=== PATIENT | male | born 1945 | race Caucasian/White ===

== ENCOUNTER 2019-07-04 15:20 | Inpatient (IN) ==
[2019-07-04 16:26] LABS: Basophils # 0.1 10*3/uL (0.0-0.2); Basophils % 0.7 % (0.0-0.8); Eosinophils # 0.2 10*3/uL (0.0-0.87); Eosinophils % 2.1 % (0.00-10.9); Hematocrit 40.1 VOL% (42.0-52.0); Hemoglobin 12.1 GM/DL (14.0-18.0); Immature Granulocytes % 0.3 %; Immature Granulocytes Absolute 0.02 #; Lymphocytes # 0.9 10*3/uL (1.4-4.0); Lymphocytes % 13.2 % (21.2-54.2); Mean Corpuscular HGB Conc 30.2 GM/DL (32-36); Mean Platelet Volume 11.6 FL (9.6-12.0); Monocytes % 10.1 % (1.7-12.7); Neutrophils % 73.6 % (38.7-73.9); Platelet Count 213 T/CUMM (130-400); Red Blood Count 4.36 MC/CUMM (3.8-5.5); Red Cell Distribution Width 15.1 % (9.3-17.3); White Blood Count 7.1 T/CUMM (4-12)
[2019-07-04 16:53] LABS: Albumin 2.5 G/DL (3.4-5.0); Bilirubin,Total 0.6 MG/DL (0.2-1.0); Total Protein 5.6 G/DL (6.4-8.3)
[2019-07-04 17:35] LABS: PT Patient Result 10.7 SECS (9.6-12.2)
[2019-07-04] MEDS ORDERED: FUROSEMIDE 40 MG/4 ML VIAL ONE (19:16)
[2019-07-04] MEDS ORDERED: FUROSEMIDE 40 MG/4 ML VIAL IV STA (19:18)
[2019-07-04] MEDS ORDERED: ONDANSETRON 4 MG/2 ML VIAL IV PRN (19:24)
[2019-07-04] MEDS ORDERED: ACETAMINOPHEN 325 MG TABLET PO PRN (19:24)
[2019-07-04] MEDS ORDERED: MAGNESIUM SULF RIDER 2 GM in PREMIX 1 EACH IV PRN (19:24)
[2019-07-04] MEDS ORDERED: MAGNESIUM SULF RIDER 4 GM in PREMIX 1 EACH IV PRN (19:24)
[2019-07-04] MEDS ORDERED: TETANUS IMMUNE GLOBULIN 250 UNIT SYRINGE IM ONE (19:38)
[2019-07-04] MEDS: carvediloL 3.125 MG TABLET PO SCH (22:05)
[2019-07-04] MEDS: ENOXAPARIN 40 MG/0.4 ML SYRINGE SUBCUT SCH (22:05)
[2019-07-04] MEDS ORDERED: hydrALAZINE 20 MG/1 ML VIAL IV PRN (23:45)
[2019-07-05] MEDS: ALBUTEROL/IPRATROPIUM 3 ML NEB RESP TX SCH ×4 (00:40→19:43)
[2019-07-05 06:25] LABS: Basophils # 0.1 10*3/uL (0.0-0.2); Basophils % 0.7 % (0.0-0.8); Eosinophils % 0.5 % (0.00-10.9); Hematocrit 42.7 VOL% (42.0-52.0); Hemoglobin 12.9 GM/DL (14.0-18.0); Immature Granulocytes % 0.4 %; Immature Granulocytes Absolute 0.03 #; Lymphocytes # 0.8 10*3/uL (1.4-4.0); Lymphocytes % 10.2 % (21.2-54.2); Mean Corpuscular HGB Conc 30.2 GM/DL (32-36); Mean Corpuscular Volume 92.8 FL (87-102); Mean Platelet Volume 12.9 FL (9.6-12.0); Monocytes % 10.7 % (1.7-12.7); Neutrophils % 77.5 % (38.7-73.9); Platelet Count 208 T/CUMM (130-400); Red Cell Distribution Width 15.5 % (9.3-17.3); White Blood Count 7.3 T/CUMM (4-12)
[2019-07-05 06:34] LABS: Calcium 8.3 MG/DL (8.5-10.1); Osmolality,Calculated 287.6 MOS/KG (273-304); Thyroid Stimulating Hormone 2.03 uIU/ml (0.358-3.74); VLDL CHOLESTEROL 14.2 MG/DL
[2019-07-05] MEDS ORDERED: FUROSEMIDE 20 MG/2 ML VIAL IV SCH (08:00)
[2019-07-05] MEDS: NICOTINE 21 MG/24 HR PATCH TRANSDERM SCH (09:42)
[2019-07-05] MEDS: LISINOPRIL 2.5 MG TABLET PO SCH (09:43)
[2019-07-05] MEDS: PANTOPRAZOLE 40 MG TABLET PO SCH (09:43)
[2019-07-05] MEDS: carvediloL 3.125 MG TABLET PO SCH ×2 (09:44→16:52)
[2019-07-05] MEDS: ASPIRIN CHEW 81 MG TABLET PO SCH (09:44)
[2019-07-05] MEDS ORDERED: DIPHTHERIA/TETANUS ADULT VACCINE 0.5 ML SYRINGE IM ONE (11:00)
[2019-07-05 16:13] LABS: Apearance,Urine CLEAR (Clear); Bilirubin,Urine Negative (Negative); Blood, Urine Small mg/dL (Negative); Glucose,Urine (UA) Negative (Negative); Ketones,Urine Negative (Negative); Mucus,Urine Occasional /LPF (Occasional); Nitrite,Urine Positive (Negative); Protein,Urine Negative; RBC,Urine 5 /HPF (0-4); Squamous Epithelial Cell,Urine Occasional /HPF (0-10); Urine Color Yellow (Yellow); Urine Specific Gravity 1.021 (1.001-1.035); Urine Urobilinogen < 2.0 EU/DL (0.2-1.0); WBC,Urine 47 /HPF (0-6)
[2019-07-05] MEDS: FUROSEMIDE 40 MG/4 ML VIAL IV SCH (16:51)
[2019-07-05] MEDS: ENOXAPARIN 40 MG/0.4 ML SYRINGE SUBCUT SCH (21:22)
[2019-07-06] MEDS: ALBUTEROL/IPRATROPIUM 3 ML NEB RESP TX SCH ×4 (00:15→19:28)
[2019-07-06 06:35] LABS: Basophils % 0.4 % (0.0-0.8); Eosinophils # 0.1 10*3/uL (0.0-0.87); Eosinophils % 1.6 % (0.00-10.9); Hematocrit 36.2 VOL% (42.0-52.0); Hemoglobin 10.9 GM/DL (14.0-18.0); Immature Granulocytes % 0.4 %; Immature Granulocytes Absolute 0.02 #; Lymphocytes # 0.7 10*3/uL (1.4-4.0); Lymphocytes % 12.1 % (21.2-54.2); Mean Corpuscular HGB Conc 30.1 GM/DL (32-36); Mean Corpuscular Volume 90.7 FL (87-102); Mean Platelet Volume 11.4 FL (9.6-12.0); Monocytes % 9.1 % (1.7-12.7); Neutrophils % 76.4 % (38.7-73.9); Platelet Count 198 T/CUMM (130-400); Red Blood Count 3.99 MC/CUMM (3.8-5.5); Red Cell Distribution Width 15.4 % (9.3-17.3); White Blood Count 5.5 T/CUMM (4-12)
[2019-07-06 06:53] LABS: Calcium 7.7 MG/DL (8.5-10.1)
[2019-07-06] MEDS ORDERED: SPIRONOLACTONE 25 MG TABLET PO SCH (09:00)
[2019-07-06] MEDS: FUROSEMIDE 40 MG/4 ML VIAL IV SCH (09:01)
[2019-07-06] MEDS: carvediloL 3.125 MG TABLET PO SCH ×2 (09:01→16:07)
[2019-07-06] MEDS: NICOTINE 21 MG/24 HR PATCH TRANSDERM SCH (09:01)
[2019-07-06] MEDS: ASPIRIN CHEW 81 MG TABLET PO SCH (09:02)
[2019-07-06] MEDS: PANTOPRAZOLE 40 MG TABLET PO SCH (09:02)
[2019-07-06] MEDS: MULTIVITAMIN (CENTRUM) TABLET PO SCH (09:02)
[2019-07-06] MEDS: LISINOPRIL 2.5 MG TABLET PO SCH (09:02)
[2019-07-06] MEDS: cefTRIAXone 1,000 MG in SYRINGE 1 EACH IV SCH (11:30)
[2019-07-06] MEDS ORDERED: SKIN HEALING OINT (AQUAPHOR) 50 GM TUBE TOP PRN (12:00)
[2019-07-06] MEDS: BACITRACIN OINT 0.9 GM PACK TOP SCH (14:53)
[2019-07-06] MEDS: ENOXAPARIN 40 MG/0.4 ML SYRINGE SUBCUT SCH (21:54)
[2019-07-07] MEDS: ALBUTEROL/IPRATROPIUM 3 ML NEB RESP TX SCH ×4 (02:04→20:08)
[2019-07-07 04:17] LABS: Basophils % 0.4 % (0.0-0.8); Eosinophils # 0.1 10*3/uL (0.0-0.87); Eosinophils % 1.7 % (0.00-10.9); Hematocrit 35.6 VOL% (42.0-52.0); Hemoglobin 10.8 GM/DL (14.0-18.0); Immature Granulocytes % 0.6 %; Immature Granulocytes Absolute 0.03 #; Lymphocytes # 0.9 10*3/uL (1.4-4.0); Mean Corpuscular HGB Conc 30.3 GM/DL (32-36); Mean Corpuscular Volume 90.1 FL (87-102); Mean Platelet Volume 12.1 FL (9.6-12.0); Monocytes % 10.8 % (1.7-12.7); Neutrophils % 67.5 % (38.7-73.9); Platelet Count 182 T/CUMM (130-400); Red Blood Count 3.95 MC/CUMM (3.8-5.5); Red Cell Distribution Width 15.2 % (9.3-17.3); White Blood Count 4.8 T/CUMM (4-12)
[2019-07-07 04:54] LABS: Calcium 7.9 MG/DL (8.5-10.1); Osmolality,Calculated 286.8 MOS/KG (273-304)
[2019-07-07] MEDS ORDERED: POTASSIUM CHLORIDE 20 MEQ TABLET PO ONE (06:12)
[2019-07-07] MEDS: POTASSIUM CHLORIDE RIDER 10 MEQ in PREMIX 1 EACH IV SCH ×2 (07:41→10:00)
[2019-07-07] MEDS ORDERED: LIDOCAINE 1% 20 ML VIAL ONE ×2 (09:36→11:59)
[2019-07-07] MEDS ORDERED: HEPARIN/NACL 0.9% 2 UNITS/ML 0 ML IV ONE (09:36)
[2019-07-07] MEDS: PANTOPRAZOLE 40 MG TABLET PO SCH (10:01)
[2019-07-07] MEDS: LISINOPRIL 2.5 MG TABLET PO SCH (10:01)
[2019-07-07] MEDS: carvediloL 3.125 MG TABLET PO SCH ×2 (10:01→20:01)
[2019-07-07] MEDS: ASPIRIN CHEW 81 MG TABLET PO SCH (10:01)
[2019-07-07] MEDS: MULTIVITAMIN (CENTRUM) TABLET PO SCH (10:53)
[2019-07-07] MEDS ORDERED: HEPARIN/NACL 0.9% 2 UNITS/ML 500 ML IV ONE ×2 (11:59→12:00)
[2019-07-07] MEDS ORDERED: fentaNYL 100 MCG/2 ML VIAL ONE (12:59)
[2019-07-07] MEDS ORDERED: PROPOFOL 200 MG/20 ML VIAL IV ONE (12:59)
[2019-07-07] MEDS ORDERED: LIDOCAINE 2% 5 ML VIAL ONE (12:59)
[2019-07-07] MEDS ORDERED: MIDAZOLAM 2 MG/2 ML VIAL ONE (12:59)
[2019-07-07] MEDS ORDERED: SODIUM CHLORIDE 0.9% 1,000 ML IV SCH (13:00)
[2019-07-07] MEDS ORDERED: ONDANSETRON 4 MG/2 ML VIAL ONE (13:00)
[2019-07-07] MEDS: cefTRIAXone 1,000 MG in SYRINGE 1 EACH IV SCH (16:56)
[2019-07-07] MEDS: BACITRACIN OINT 0.9 GM PACK TOP SCH (16:56)
[2019-07-07] MEDS: NICOTINE 21 MG/24 HR PATCH TRANSDERM SCH (16:57)
[2019-07-08] MEDS: ALBUTEROL/IPRATROPIUM 3 ML NEB RESP TX SCH ×4 (01:21→19:36)
[2019-07-08 03:16] LABS: Basophils % 0.9 % (0.0-0.8); Eosinophils # 0.1 10*3/uL (0.0-0.87); Eosinophils % 1.5 % (0.00-10.9); Hematocrit 35.7 VOL% (42.0-52.0); Hemoglobin 10.6 GM/DL (14.0-18.0); Immature Granulocytes % 0.2 %; Immature Granulocytes Absolute 0.01 #; Lymphocytes # 0.9 10*3/uL (1.4-4.0); Lymphocytes % 19.1 % (21.2-54.2); Mean Corpuscular HGB Conc 29.7 GM/DL (32-36); Mean Corpuscular Volume 92.7 FL (87-102); Mean Platelet Volume 12.2 FL (9.6-12.0); Monocytes % 11.7 % (1.7-12.7); Neutrophils % 66.6 % (38.7-73.9); Platelet Count 188 T/CUMM (130-400); Red Blood Count 3.85 MC/CUMM (3.8-5.5); Red Cell Distribution Width 15.3 % (9.3-17.3); White Blood Count 4.6 T/CUMM (4-12)
[2019-07-08 03:44] LABS: Calcium 7.8 MG/DL (8.5-10.1); Osmolality,Calculated 283.1 MOS/KG (273-304)
[2019-07-08] MEDS: BACITRACIN OINT 0.9 GM PACK TOP SCH (08:50)
[2019-07-08] MEDS: NICOTINE 21 MG/24 HR PATCH TRANSDERM SCH (08:50)
[2019-07-08] MEDS: LISINOPRIL 2.5 MG TABLET PO SCH (08:52)
[2019-07-08] MEDS: carvediloL 3.125 MG TABLET PO SCH ×2 (08:52→16:37)
[2019-07-08] MEDS: MULTIVITAMIN (CENTRUM) TABLET PO SCH (08:52)
[2019-07-08] MEDS: PANTOPRAZOLE 40 MG TABLET PO SCH (08:52)
[2019-07-08] MEDS: ASPIRIN CHEW 81 MG TABLET PO SCH (08:52)
[2019-07-08] MEDS: cefTRIAXone 1,000 MG in SYRINGE 1 EACH IV SCH (10:53)
[2019-07-09] MEDS: ALBUTEROL/IPRATROPIUM 3 ML NEB RESP TX SCH ×4 (01:43→18:57)
[2019-07-09 04:29] LABS: Basophils % 0.8 % (0.0-0.8); Eosinophils # 0.1 10*3/uL (0.0-0.87); Eosinophils % 1.7 % (0.00-10.9); Hematocrit 36.1 VOL% (42.0-52.0); Hemoglobin 10.7 GM/DL (14.0-18.0); Immature Granulocytes % 0.4 %; Immature Granulocytes Absolute 0.02 #; Lymphocytes # 0.9 10*3/uL (1.4-4.0); Lymphocytes % 17.1 % (21.2-54.2); Mean Corpuscular HGB Conc 29.6 GM/DL (32-36); Mean Corpuscular Volume 92.8 FL (87-102); Mean Platelet Volume 11.7 FL (9.6-12.0); Monocytes % 8.7 % (1.7-12.7); Neutrophils % 71.3 % (38.7-73.9); Platelet Count 170 T/CUMM (130-400); Red Blood Count 3.89 MC/CUMM (3.8-5.5); Red Cell Distribution Width 15.2 % (9.3-17.3); White Blood Count 5.2 T/CUMM (4-12)
[2019-07-09 05:09] LABS: Calcium 7.9 MG/DL (8.5-10.1); Osmolality,Calculated 282.1 MOS/KG (273-304)
[2019-07-09] MEDS: carvediloL 3.125 MG TABLET PO SCH ×2 (08:31→17:26)
[2019-07-09] MEDS: LISINOPRIL 2.5 MG TABLET PO SCH (08:31)
[2019-07-09] MEDS: MULTIVITAMIN (CENTRUM) TABLET PO SCH (08:31)
[2019-07-09] MEDS: ASPIRIN CHEW 81 MG TABLET PO SCH (08:31)
[2019-07-09] MEDS: BACITRACIN OINT 0.9 GM PACK TOP SCH (08:31)
[2019-07-09] MEDS: PANTOPRAZOLE 40 MG TABLET PO SCH (08:31)
[2019-07-09] MEDS: NICOTINE 21 MG/24 HR PATCH TRANSDERM SCH (08:31)
[2019-07-09] MEDS: cefTRIAXone 1,000 MG in SYRINGE 1 EACH IV SCH (10:34)
[2019-07-09] MEDS: CHLORHEXIDINE 4% SOLN 118 ML BOTTLE TOP SCH ×2 (15:09→22:12)
[2019-07-09] MEDS: CHLORHEXIDINE 0.12% ORAL RINSE 60 ML BOTTLE SWISH/SPIT SCH (22:12)
[2019-07-10] MEDS: ALBUTEROL/IPRATROPIUM 3 ML NEB RESP TX SCH ×4 (00:32→20:11)
[2019-07-10 01:05] LABS: Basophils % 0.7 % (0.0-0.8); Eosinophils # 0.1 10*3/uL (0.0-0.87); Hematocrit 35.5 VOL% (42.0-52.0); Hemoglobin 10.7 GM/DL (14.0-18.0); Immature Granulocytes % 0.3 %; Immature Granulocytes Absolute 0.02 #; Lymphocytes # 0.8 10*3/uL (1.4-4.0); Lymphocytes % 13.7 % (21.2-54.2); Mean Corpuscular HGB Conc 30.1 GM/DL (32-36); Mean Corpuscular Volume 92.7 FL (87-102); Monocytes % 9.8 % (1.7-12.7); Neutrophils % 73.5 % (38.7-73.9); Platelet Count 169 T/CUMM (130-400); Red Blood Count 3.83 MC/CUMM (3.8-5.5); Red Cell Distribution Width 15.3 % (9.3-17.3); White Blood Count 6.1 T/CUMM (4-12)
[2019-07-10 01:28] LABS: Osmolality,Calculated 286.1 MOS/KG (273-304)
[2019-07-10 01:58] LABS: Calcium 7.8 MG/DL (8.5-10.1)
[2019-07-10] MEDS ORDERED: PAPAVERINE 60 MG/2 ML VIAL ONE (04:22)
[2019-07-10] MEDS ORDERED: TISSUE ADHESIVE 1 EACH APPLICATOR TOP ONE (04:22)
[2019-07-10] MEDS ORDERED: VANCOMYCIN 1,000 MG VIAL ONE (04:23)
[2019-07-10] MEDS: SODIUM CHLORIDE 0.9% 1,000 ML IV SCH ×2 (04:50→16:03)
[2019-07-10] MEDS ORDERED: SUFentanil 250 MCG/5 ML AMP ONE (05:56)
[2019-07-10] MEDS ORDERED: VECURONIUM 10 MG VIAL IV ONE (05:56)
[2019-07-10] MEDS ORDERED: EPINEPHrine 1 MG/ML VIAL ONE ×3 (05:56→12:08)
[2019-07-10] MEDS ORDERED: MIDAZOLAM 10 MG/2 ML VIAL ONE ×2 (05:56)
[2019-07-10] MEDS ORDERED: AMINOCAPROIC ACID 5,000 MG/20 ML VIAL ONE (05:57)
[2019-07-10] MEDS ORDERED: PROPOFOL IV ONE (05:57)
[2019-07-10] MEDS ORDERED: NITROGLYCERIN DRIP 50 MG/250 ML BOTTLE IV ONE (05:57)
[2019-07-10] MEDS ORDERED: CEFUROXIME INJ 1,500 MG in SYRINGE 1 EACH IV ONE (06:30)
[2019-07-10 07:57] LABS: ABG Base Excess 9.6 MMOL/L (-2.5-2.5); ABG HCO3 33.3 MMOL/L (20-26); ABG Oxygen Saturation 99.4 % (95-100); ABG PCO2 41.7 MM HG (35-48); ABG PH 7.514 (7.35-7.45); ABG TCO2 30.1 MMOL/L (23-27); Glucose Heart Surgery 99 MG/DL (74-106); Hematocrit Heart Surgery 32.2 PERCENT (42-52); Hemoglobin Heart Surgery 10.4 G/DL (14.0-18.0); Ionized Calcium Arterial 1.09 MMOL/L (1.21-1.46); PCO2 Patient Temp Arterial 41.7 MMHG; PH Patient Temp Arterial 7.514; Patient Temperature 37 CELCIUS; Potassium Heart/CVR 3.6 MMOL/L (3.5-5.1); Sodium Heart/CVR 137 MMOL/L (135-145)
[2019-07-10 09:06] LABS: Hematocrit Heart Surgery 23.9 PERCENT (42-52); Hemoglobin Heart Surgery 7.7 G/DL (14.0-18.0); PCO2 Patient Temp Venous 37.4 MM HG; PH Patient Temp Venous 7.563; PO2 Patient Temp Venous 38.4 MM HG; Potassium Heart/CVR 3.8 MMOL/L (3.5-5.1); VBG Base Excess 10.7 MEQ/L (0-4); VBG HCO3 34.2 MEQ/L (24-28); VBG Oxygen Saturation 81.7 %; VBG PCO2 39.2 MMHG (41-51); VBG PH 7.547; VBG PO2 41.1 MMHG (17-40)
[2019-07-10 09:42] LABS: Hematocrit Heart Surgery 23.5 PERCENT (42-52); Hemoglobin Heart Surgery 7.5 G/DL (14.0-18.0); PCO2 Patient Temp Venous 30.8 MM HG; PO2 Patient Temp Venous 36.5 MM HG; Potassium Heart/CVR 3.6 MMOL/L (3.5-5.1); VBG Base Excess 11.4 MEQ/L (0-4); VBG Oxygen Saturation 89.9 %; VBG PCO2 37.4 MMHG (41-51); VBG PH 7.573
[2019-07-10 09:44] LABS: PH Patient Temp Venous 7.636
[2019-07-10 10:04] LABS: Hematocrit Heart Surgery 22.4 PERCENT (42-52); Hemoglobin Heart Surgery 7.2 G/DL (14.0-18.0); PCO2 Patient Temp Venous 29.1 MM HG; PO2 Patient Temp Venous 31.2 MM HG; Potassium Heart/CVR 4.8 MMOL/L (3.5-5.1); VBG Base Excess 10.9 MEQ/L (0-4); VBG HCO3 34.4 MEQ/L (24-28); VBG Oxygen Saturation 82.2 %; VBG PCO2 33.6 MMHG (41-51); VBG PH 7.604; VBG PO2 38.5 MMHG (17-40)
[2019-07-10 10:05] LABS: PH Patient Temp Venous 7.652
[2019-07-10] MEDS ORDERED: THROMBIN TOPICAL (RECOMBINANT) 5,000 UNIT VIAL TOP ONE (10:26)
[2019-07-10] MEDS ORDERED: ALBUMIN 25% 25 GM/100 ML VIAL IV ONE (10:33)
[2019-07-10] MEDS ORDERED: MANNITOL 100 GM/500 ML BAG IV ONE (10:33)
[2019-07-10] MEDS ORDERED: DEXTROSE 5% KCL 20 MEQ 20 MEQ/1,000 ML BAG IV ONE (10:33)
[2019-07-10] MEDS ORDERED: POTASSIUM CHLORIDE 20 MEQ/10 ML VIAL ONE (10:34)
[2019-07-10] MEDS ORDERED: HEPARIN 10,000 UNIT/10 ML VIAL ONE (10:34)
[2019-07-10] MEDS ORDERED: MAGNESIUM SULFATE 5 GM/10 ML VIAL IV ONE (10:34)
[2019-07-10] MEDS ORDERED: FUROSEMIDE 20 MG/2 ML VIAL ONE (10:34)
[2019-07-10] MEDS ORDERED: PROTAMINE SULFATE 250 MG/25 ML VIAL IV ONE (10:35)
[2019-07-10] MEDS ORDERED: PROTAMINE SULFATE 50 MG/5 ML VIAL IV ONE (10:35)
[2019-07-10] MEDS ORDERED: methylPREDNISolone SOD SUC 1,000 MG/8 ML VIAL ONE (10:35)
[2019-07-10] MEDS ORDERED: LIDOCAINE 2% 5 ML VIAL ONE ×2 (10:35→11:41)
[2019-07-10] MEDS ORDERED: SODIUM BICARBONATE 50 MEQ/50 ML VIAL IV ONE (10:35)
[2019-07-10 10:47] LABS: ABG HCO3 28.8 MMOL/L (20-26); ABG Oxygen Saturation 99.2 % (95-100); ABG PCO2 44.4 MM HG (35-48); ABG PO2 244.7 MM HG (80-95); ABG TCO2 30.2 MMOL/L (23-27); Glucose Heart Surgery 182 MG/DL (74-106); Hemoglobin Heart Surgery 9.9 G/DL (14.0-18.0); PCO2 Patient Temp Arterial 44.4 MMHG; PO2 Patient Temp Arterial 244.7 MM HG; Patient Temperature 37 CELCIUS; Potassium Heart/CVR 4.3 MMOL/L (3.5-5.1); Sodium Heart/CVR 134 MMOL/L (135-145)
[2019-07-10] MEDS ORDERED: PHENYLEPHRINE DRIP 40 MG/250 ML PREMIX IV ONE (11:24)
[2019-07-10] MEDS ORDERED: PHENYLEPHRINE DRIP 40 MG/250 ML PREMIX IV PRN (11:30)
[2019-07-10] MEDS ORDERED: SODIUM CHLORIDE 0.9% 500 ML IV ONE (11:41)
[2019-07-10] MEDS ORDERED: CALCIUM CHLORIDE 1,000 MG/10 ML VIAL IV ONE (11:41)
[2019-07-10] MEDS ORDERED: LACTATED RINGERS 2,000 ML IV ONE (11:41)
[2019-07-10] MEDS ORDERED: PHENYLEPHRINE 10 MG/1 ML VIAL IV ONE (11:41)
[2019-07-10] MEDS ORDERED: SEVOFLURANE 1 UNIT/15 MINUTE INH ONE (11:41)
[2019-07-10] MEDS ORDERED: SODIUM CHLORIDE 0.9% 2,000 ML IV ONE (11:41)
[2019-07-10] MEDS ORDERED: PROPOFOL 200 MG/20 ML VIAL IV ONE (11:41)
[2019-07-10] MEDS ORDERED: ETOMIDATE 40 MG/20 ML VIAL IV ONE (11:41)
[2019-07-10] MEDS ORDERED: SODIUM CHLORIDE 0.9% 250 ML IV PRN (12:03)
[2019-07-10] MEDS ORDERED: CHLORHEXIDINE 4% SOLN 118 ML BOTTLE TOP PRN (12:03)
[2019-07-10] MEDS ORDERED: MIDAZOLAM 2 MG/2 ML VIAL IV PRN (12:03)
[2019-07-10] MEDS ORDERED: ONDANSETRON 4 MG/2 ML VIAL IV PRN (12:03)
[2019-07-10] MEDS ORDERED: INSULIN REGULAR 100 UNIT/ML IV PRN (12:03)
[2019-07-10] MEDS ORDERED: INSULIN REGULAR DRIP 100 ML IV SCH (12:03)
[2019-07-10] MEDS ORDERED: ACETAMINOPHEN 650 MG SUPP RECTAL PRN (12:03)
[2019-07-10] MEDS ORDERED: MAGNESIUM SULF RIDER 4 GM in PREMIX 1 EACH IV PRN (12:03)
[2019-07-10] MEDS ORDERED: DEXTROSE 50% 25 GM/50 ML VIAL IV PRN ×2 (12:03)
[2019-07-10] MEDS ORDERED: MAGNESIUM SULF RIDER 2 GM in PREMIX 1 EACH IV PRN (12:03)
[2019-07-10] MEDS ORDERED: SODIUM CHLORIDE 0.45% 1,000 ML IV SCH (12:03)
[2019-07-10] MEDS ORDERED: CALCIUM CHLORIDE 1,000 MG/10 ML SYRINGE IV PRN (12:03)
[2019-07-10 12:23] LABS: ABG Base Excess 7.4 MMOL/L (-2.5-2.5); ABG HCO3 31.2 MMOL/L (20-26); ABG PCO2 41.2 MM HG (35-48); ABG TCO2 28.8 MMOL/L (23-27); Glucose Heart Surgery 182 MG/DL (74-106); Hematocrit Heart Surgery 27.7 PERCENT (42-52); Hemoglobin Heart Surgery 8.9 G/DL (14.0-18.0); Potassium Heart/CVR 3.5 MMOL/L (3.5-5.1)
[2019-07-10 12:24] LABS: Basophils % 0.3 % (0.0-0.8); Eosinophils % 0.4 % (0.00-10.9); Hematocrit 28.5 VOL% (42.0-52.0); Hemoglobin 8.6 GM/DL (14.0-18.0); Immature Granulocytes % 0.8 %; Immature Granulocytes Absolute 0.06 #; Lymphocytes # 0.4 10*3/uL (1.4-4.0); Lymphocytes % 5.8 % (21.2-54.2); Mean Corpuscular HGB Conc 30.2 GM/DL (32-36); Mean Corpuscular Volume 91.3 FL (87-102); Mean Platelet Volume 11.5 FL (9.6-12.0); Monocytes % 7.2 % (1.7-12.7); Neutrophils % 85.5 % (38.7-73.9); Platelet Count 124 T/CUMM (130-400); Red Blood Count 3.12 MC/CUMM (3.8-5.5); Red Cell Distribution Width 15.3 % (9.3-17.3); White Blood Count 7.1 T/CUMM (4-12)
[2019-07-10] MEDS ORDERED: MILRINONE 20 MG/100 ML PREMIX IV ONE (12:25)
[2019-07-10 12:33] LABS: INR 1.2; Partial Thromboplastin Time 29.4 SECS (20.8-36.0)
[2019-07-10] MEDS: SODIUM CHLORIDE 0.45% 1,000 ML IV SCH ×2 (12:40→23:20)
[2019-07-10 12:43] LABS: Calcium 7.4 MG/DL (8.5-10.1); Osmolality,Calculated 285.3 MOS/KG (273-304)
[2019-07-10] MEDS: ALBUMIN 5% 12.5 GM in PREMIX 1 EACH IV PRN ×3 (12:45→17:01)
[2019-07-10] MEDS ORDERED: MILRINONE 20 MG/100 ML PREMIX IV SCH (13:00)
[2019-07-10] MEDS ORDERED: INFLUENZA VIRUS VACCINE 0.5 ML SYRINGE IM ONE (13:04)
[2019-07-10] MEDS: POTASSIUM CHLORIDE RIDER 20 MEQ in PREMIX 1 EACH IV PRN (13:36)
[2019-07-10] MEDS ORDERED: ASPIRIN CHEW 81 MG TABLET PO ONE (15:00)
[2019-07-10] MEDS: carvediloL 3.125 MG TABLET PO SCH (16:00)
[2019-07-10] MEDS: ASPIRIN CHEW 81 MG TABLET PO SCH (16:01)
[2019-07-10] MEDS: BACITRACIN OINT 0.9 GM PACK TOP SCH (16:01)
[2019-07-10] MEDS: CHLORHEXIDINE 4% SOLN 118 ML BOTTLE TOP SCH (16:02)
[2019-07-10] MEDS: MULTIVITAMIN (CENTRUM) TABLET PO SCH (16:02)
[2019-07-10] MEDS: NICOTINE 21 MG/24 HR PATCH TRANSDERM SCH (16:02)
[2019-07-10] MEDS: LISINOPRIL 2.5 MG TABLET PO SCH (16:03)
[2019-07-10] MEDS: PANTOPRAZOLE 40 MG TABLET PO SCH (16:03)
[2019-07-10] MEDS: cefTRIAXone 1,000 MG in SYRINGE 1 EACH IV SCH (16:03)
[2019-07-10] MEDS: CHLORHEXIDINE 0.12% ORAL RINSE 60 ML BOTTLE SWISH/SPIT SCH ×2 (16:03→21:38)
[2019-07-10] MEDS: CEFUROXIME INJ 1,500 MG in SYRINGE 1 EACH IV SCH (21:37)
[2019-07-10] MEDS: DOBUTamine 500 MG/250 ML PREMIX IV PRN (22:47)
[2019-07-10] MEDS ORDERED: NITROGLYCERIN DRIP 50 MG/250 ML BOTTLE IV PRN (23:26)
[2019-07-11] MEDS: MORPHINE 10 MG/1 ML VIAL IV PRN (00:10)
[2019-07-11] MEDS: ALBUTEROL/IPRATROPIUM 3 ML NEB RESP TX SCH ×4 (01:11→19:32)
[2019-07-11] MEDS: SODIUM CHLORIDE 0.45% 1,000 ML IV SCH (04:16)
[2019-07-11] MEDS: MORPHINE 4 MG/1 ML VIAL IV PRN ×3 (04:32→15:58)
[2019-07-11 05:25] LABS: Basophils % 0.1 % (0.0-0.8); Hematocrit 28.2 VOL% (42.0-52.0); Hemoglobin 8.9 GM/DL (14.0-18.0); Immature Granulocytes % 0.6 %; Immature Granulocytes Absolute 0.07 #; Lymphocytes # 0.4 10*3/uL (1.4-4.0); Lymphocytes % 3.3 % (21.2-54.2); Mean Corpuscular HGB Conc 31.6 GM/DL (32-36); Mean Corpuscular Volume 89.2 FL (87-102); Mean Platelet Volume 12.8 FL (9.6-12.0); Monocytes % 5.6 % (1.7-12.7); Neutrophils % 90.4 % (38.7-73.9); Platelet Count 130 T/CUMM (130-400); Red Blood Count 3.16 MC/CUMM (3.8-5.5); Red Cell Distribution Width 15.4 % (9.3-17.3); White Blood Count 12.2 T/CUMM (4-12)
[2019-07-11 05:43] LABS: Lymphocytes 4 % (20-55); Segmented Neutrophils 93 % (50-85); Total Cells Counted 100
[2019-07-11 05:44] LABS: Hypochromasia 1+; Ovalocytes Slight; Platelet Estimate Normal
[2019-07-11 05:45] LABS: ABG Base Excess 5.5 MMOL/L (-2.5-2.5); ABG HCO3 29.3 MMOL/L (20-26); ABG Oxygen Saturation 94.2 % (95-100); ABG PH 7.459 (7.35-7.45); ABG PO2 66.7 MM HG (80-95); ABG TCO2 27.4 MMOL/L (23-27); Glucose Heart Surgery 114 MG/DL (74-106); Hematocrit Heart Surgery 28.1 PERCENT (42-52); Potassium Heart/CVR 3.5 MMOL/L (3.5-5.1)
[2019-07-11 06:13] LABS: Calcium 7.5 MG/DL (8.5-10.1)
[2019-07-11] MEDS: POTASSIUM CHLORIDE RIDER 20 MEQ in PREMIX 1 EACH IV PRN ×2 (06:14→23:58)
[2019-07-11] MEDS ORDERED: KETOROLAC 15 MG/1 ML VIAL IV ONE (06:45)
[2019-07-11 07:26] LABS: VBG Base Excess 5.2 MEQ/L (0-4); VBG HCO3 30.5 MEQ/L (24-28); VBG PCO2 48.6 MMHG (41-51); VBG PH 7.416; VBG PO2 29.6 MMHG (17-40)
[2019-07-11] MEDS ORDERED: CALCIUM GLUCONATE 1,000 MG in SODIUM CHLORIDE 0.9% 100 ML IV ONE (08:00)
[2019-07-11] MEDS: CEFUROXIME INJ 1,500 MG in SYRINGE 1 EACH IV SCH ×2 (08:19→19:45)
[2019-07-11] MEDS ORDERED: PANTOPRAZOLE 40 MG VIAL IV SCH (09:00)
[2019-07-11] MEDS: POTASSIUM CHLORIDE RIDER 10 MEQ in PREMIX 1 EACH IV PRN (09:30)
[2019-07-11] MEDS: INSULIN LISPRO 100 UNIT/ML SUBCUT SCH ×5 (09:30→23:35)
[2019-07-11] MEDS: CHLORHEXIDINE 0.12% ORAL RINSE 60 ML BOTTLE SWISH/SPIT SCH ×2 (09:35→20:00)
[2019-07-11] MEDS ORDERED: FUROSEMIDE 40 MG/4 ML VIAL IV ONE (10:00)
[2019-07-11] MEDS ORDERED: ALBUMIN 5% 12.5 GM in PREMIX 1 EACH IV ONE (10:30)
[2019-07-11] MEDS: ASPIRIN EC 325 MG TABLET PO SCH (11:28)
[2019-07-11] MEDS: FUROSEMIDE 40 MG TABLET PO SCH (11:28)
[2019-07-11] MEDS: ATORVASTATIN 40 MG TABLET PO SCH ×2 (11:57→20:00)
[2019-07-11] MEDS ORDERED: ALBUMIN 25% 25 GM/100 ML VIAL IV ONE (12:18)
[2019-07-11] MEDS ORDERED: ALBUMIN 25% 12.5 GM in PREMIX 1 EACH IV ONE (13:00)
[2019-07-11] MEDS ORDERED: ALBUMIN 25% 25 GM in PREMIX 1 EACH IV ONE (13:00)
[2019-07-11 14:25] LABS: ABG Base Excess 4.7 MMOL/L (-2.5-2.5); ABG HCO3 28.5 MMOL/L (20-26); ABG Oxygen Saturation 93.2 % (95-100); ABG PH 7.448 (7.35-7.45); ABG TCO2 26.4 MMOL/L (23-27); Glucose Heart Surgery 109 MG/DL (74-106); Hematocrit Heart Surgery 31.4 PERCENT (42-52); Hemoglobin Heart Surgery 10.2 G/DL (14.0-18.0); Potassium Heart/CVR 3.8 MMOL/L (3.5-5.1)
[2019-07-11 19:27] LABS: Hematocrit Heart Surgery 33.5 PERCENT (42-52); Hemoglobin Heart Surgery 10.9 G/DL (14.0-18.0); PCO2 Patient Temp Venous 52.1 MM HG; PH Patient Temp Venous 7.4; Potassium Heart/CVR 3.8 MMOL/L (3.5-5.1); VBG Base Excess 6.1 MEQ/L (0-4); VBG HCO3 29.1 MEQ/L (24-28); VBG Oxygen Saturation 53.3 %; VBG PCO2 52.1 MMHG (41-51); VBG PH 7.4
[2019-07-11] MEDS ORDERED: AMIODARONE INJ 450 MG in DEXTROSE 5% 241 ML IV SCH (23:45)
[2019-07-12] MEDS: ALBUTEROL/IPRATROPIUM 3 ML NEB RESP TX SCH ×4 (00:04→20:00)
[2019-07-12] MEDS: POTASSIUM CHLORIDE RIDER 10 MEQ in PREMIX 1 EACH IV PRN (01:02)
[2019-07-12 04:10] LABS: Basophils % 0.2 % (0.0-0.8); Hematocrit 35.6 VOL% (42.0-52.0); Hemoglobin 11.3 GM/DL (14.0-18.0); Immature Granulocytes % 1.1 %; Lymphocytes # 0.9 10*3/uL (1.4-4.0); Lymphocytes % 4.8 % (21.2-54.2); Mean Corpuscular HGB Conc 31.7 GM/DL (32-36); Mean Corpuscular Volume 90.4 FL (87-102); Mean Platelet Volume 13.2 FL (9.6-12.0); Monocytes % 9.4 % (1.7-12.7); Neutrophils % 84.5 % (38.7-73.9); Platelet Count 159 T/CUMM (130-400); Red Blood Count 3.94 MC/CUMM (3.8-5.5); Red Cell Distribution Width 15.2 % (9.3-17.3); White Blood Count 18.8 T/CUMM (4-12)
[2019-07-12 04:17] LABS: Calcium 7.4 MG/DL (8.5-10.1); Osmolality,Calculated 287.1 MOS/KG (273-304)
[2019-07-12] MEDS: INSULIN LISPRO 100 UNIT/ML SUBCUT SCH ×5 (04:21→20:38)
[2019-07-12 04:25] LABS: Hematocrit Heart Surgery 35.4 PERCENT (42-52); Hemoglobin Heart Surgery 11.5 G/DL (14.0-18.0); PCO2 Patient Temp Venous 41.1 MM HG; PH Patient Temp Venous 7.46; PO2 Patient Temp Venous 39.7 MM HG; Potassium Heart/CVR 4.3 MMOL/L (3.5-5.1); VBG Base Excess 4.9 MEQ/L (0-4); VBG HCO3 28.4 MEQ/L (24-28); VBG Oxygen Saturation 74.5 %; VBG PCO2 41.1 MMHG (41-51); VBG PH 7.46; VBG PO2 39.7 MMHG (17-40)
[2019-07-12 04:30] LABS: Eosinophils 1 % (0-10); Hypochromasia 1+; Lymphocytes 5 % (20-55); Ovalocytes Slight; Platelet Estimate Adequate; Segmented Neutrophils 87 % (50-85); Total Cells Counted 100
[2019-07-12] MEDS: MORPHINE 4 MG/1 ML VIAL IV PRN ×2 (07:22→12:20)
[2019-07-12] MEDS ORDERED: LIDOCAINE 1% 20 ML VIAL MISC INJ ONE (07:25)
[2019-07-12] MEDS ORDERED: LIDOCAINE 2% 20 ML VIAL RESP TX ONE (07:25)
[2019-07-12] MEDS ORDERED: LIDOCAINE 2% VISCOUS 100 ML BOTTLE SWISH/SPIT ONE (07:25)
[2019-07-12] MEDS: methylPREDNISolone SOD SUC 40 MG/1 ML VIAL IV SCH ×3 (08:06→22:32)
[2019-07-12] MEDS: FUROSEMIDE 40 MG TABLET PO SCH (09:38)
[2019-07-12] MEDS: PANTOPRAZOLE 40 MG TABLET PO SCH (09:38)
[2019-07-12] MEDS: ASPIRIN EC 325 MG TABLET PO SCH (09:38)
[2019-07-12] MEDS: CHLORHEXIDINE 0.12% ORAL RINSE 60 ML BOTTLE SWISH/SPIT SCH ×3 (09:39→20:38)
[2019-07-12] MEDS: AMIODARONE INJ 450 MG in DEXTROSE 5% 241 ML IV SCH (12:20)
[2019-07-12] MEDS ORDERED: HEPARIN/NACL 0.9% 2 UNITS/ML 500 ML IV ONE (18:24)
[2019-07-12] MEDS: ATORVASTATIN 40 MG TABLET PO SCH (20:38)
[2019-07-12] MEDS ORDERED: LACTATED RINGERS 500 ML IV ONE (23:14)
[2019-07-13] MEDS: MORPHINE 10 MG/1 ML VIAL IV PRN ×2 (00:59→05:19)
[2019-07-13] MEDS: ALBUTEROL/IPRATROPIUM 3 ML NEB RESP TX SCH ×4 (01:20→19:45)
[2019-07-13] MEDS: INSULIN LISPRO 100 UNIT/ML SUBCUT SCH ×6 (01:29→20:38)
[2019-07-13 03:46] LABS: Basophils % 0.2 % (0.0-0.8); Hematocrit 36.2 VOL% (42.0-52.0); Hemoglobin 11.3 GM/DL (14.0-18.0); Immature Granulocytes % 0.8 %; Immature Granulocytes Absolute 0.11 #; Lymphocytes # 0.5 10*3/uL (1.4-4.0); Mean Corpuscular HGB Conc 31.2 GM/DL (32-36); Monocytes % 6.5 % (1.7-12.7); Neutrophils % 88.5 % (38.7-73.9); Platelet Count 151 T/CUMM (130-400); Red Blood Count 3.98 MC/CUMM (3.8-5.5); Red Cell Distribution Width 15.3 % (9.3-17.3)
[2019-07-13 03:59] LABS: Calcium 7.9 MG/DL (8.5-10.1)
[2019-07-13 04:08] LABS: Band Neutrophils 1 % (0-10); Lymphocytes 1 % (20-55); Segmented Neutrophils 91 % (50-85); Total Cells Counted 100
[2019-07-13 04:09] LABS: Anisocytosis 1+; Ovalocytes Slight; Platelet Estimate Adequate
[2019-07-13] MEDS: AMIODARONE INJ 450 MG in DEXTROSE 5% 241 ML IV SCH ×3 (06:21→14:13)
[2019-07-13] MEDS: DOBUTamine 500 MG/250 ML PREMIX IV PRN (06:21)
[2019-07-13] MEDS: ALBUMIN 5% 12.5 GM in PREMIX 1 EACH IV PRN ×2 (07:40→09:25)
[2019-07-13] MEDS ORDERED: FUROSEMIDE 40 MG/4 ML VIAL IV ONE (08:14)
[2019-07-13] MEDS: ASPIRIN EC 325 MG TABLET PO SCH ×3 (09:20→11:30)
[2019-07-13] MEDS: PANTOPRAZOLE 40 MG TABLET PO SCH ×3 (09:20→11:30)
[2019-07-13] MEDS: methylPREDNISolone SOD SUC 40 MG/1 ML VIAL IV SCH ×3 (09:20→18:51)
[2019-07-13] MEDS: CHLORHEXIDINE 0.12% ORAL RINSE 60 ML BOTTLE SWISH/SPIT SCH ×3 (09:20→21:01)
[2019-07-13] MEDS: FUROSEMIDE 40 MG TABLET PO SCH ×4 (09:20→20:39)
[2019-07-13] MEDS: AMIODARONE 200 MG TABLET PO SCH ×2 (10:46→20:39)
[2019-07-13] MEDS ORDERED: LIDOCAINE 2% TOP JELLY 20 ML VIAL INTRAURETH ONE (15:27)
[2019-07-13] MEDS ORDERED: LIDOCAINE 2% 20 ML VIAL ONE (15:28)
[2019-07-13 19:35] LABS: Apearance,Urine Slightly Hazy (Clear); Bacteria,Urine Occasional /HPF (Few); Bilirubin,Urine Negative (Negative); Blood, Urine Large mg/dL (Negative); Glucose,Urine (UA) Negative (Negative); Hyaline Casts,Urine 59 /LPF (0-3); Ketones,Urine Negative (Negative); Mucus,Urine Occasional /LPF (Occasional); Nitrite,Urine Negative (Negative); Protein,Urine Negative; RBC,Urine 47 /HPF (0-4); Squamous Epithelial Cell,Urine Occasional /HPF (0-10); Urine Color Yellow (Yellow); Urine Specific Gravity 1.017 (1.001-1.035); Urine Urobilinogen < 2.0 EU/DL (0.2-1.0); WBC,Urine 13 /HPF (0-6)
[2019-07-13] MEDS: ATORVASTATIN 40 MG TABLET PO SCH (20:39)
[2019-07-14] MEDS: methylPREDNISolone SOD SUC 40 MG/1 ML VIAL IV SCH ×4 (00:11→23:43)
[2019-07-14] MEDS: ALBUTEROL/IPRATROPIUM 3 ML NEB RESP TX SCH ×4 (00:18→19:46)
[2019-07-14] MEDS: INSULIN LISPRO 100 UNIT/ML SUBCUT SCH ×7 (02:06→23:07)
[2019-07-14] MEDS: SKIN HEALING OINT (AQUAPHOR) 50 GM TUBE TOP SCH ×2 (02:31→09:00)
[2019-07-14] MEDS: AMIODARONE INJ 450 MG in DEXTROSE 5% 241 ML IV SCH (04:28)
[2019-07-14] MEDS: MORPHINE 10 MG/1 ML VIAL IV PRN (04:29)
[2019-07-14 05:01] LABS: Calcium 7.4 MG/DL (8.5-10.1); Osmolality,Calculated 297.1 MOS/KG (273-304)
[2019-07-14] MEDS: ASPIRIN EC 325 MG TABLET PO SCH (08:45)
[2019-07-14] MEDS: PANTOPRAZOLE 40 MG TABLET PO SCH (08:45)
[2019-07-14] MEDS: AMIODARONE 200 MG TABLET PO SCH (08:45)
[2019-07-14] MEDS: FUROSEMIDE 40 MG TABLET PO SCH (08:45)
[2019-07-14] MEDS: CHLORHEXIDINE 0.12% ORAL RINSE 60 ML BOTTLE SWISH/SPIT SCH ×2 (09:00→20:31)
[2019-07-14] MEDS ORDERED: cefTRIAXone 500 MG in SYRINGE 1 EACH IV SCH (10:00)
[2019-07-14] MEDS: LOSARTAN 25 MG TABLET PO SCH (11:15)
[2019-07-14] MEDS ORDERED: cefTAZidime 2,000 MG in SYRINGE 1 EACH IV SCH (11:30)
[2019-07-14] MEDS: FUROSEMIDE 40 MG/4 ML VIAL IV SCH (16:45)
[2019-07-14] MEDS: ALBUMIN 5% 12.5 GM in PREMIX 1 EACH IV PRN (16:50)
[2019-07-14] MEDS: ATORVASTATIN 40 MG TABLET PO SCH (20:31)
[2019-07-15] MEDS: ALBUTEROL/IPRATROPIUM 3 ML NEB RESP TX SCH ×4 (02:04→19:11)
[2019-07-15 04:21] LABS: Basophils % 0.2 % (0.0-0.8); Hematocrit 36.7 VOL% (42.0-52.0); Hemoglobin 11.4 GM/DL (14.0-18.0); Immature Granulocytes % 0.6 %; Lymphocytes # 0.6 10*3/uL (1.4-4.0); Lymphocytes % 3.4 % (21.2-54.2); Mean Corpuscular HGB Conc 31.1 GM/DL (32-36); Mean Corpuscular Volume 91.8 FL (87-102); Mean Platelet Volume 13.4 FL (9.6-12.0); Monocytes % 8.1 % (1.7-12.7); NRBC # 0.03 10*3/uL; Neutrophils % 87.7 % (38.7-73.9); Platelet Count 202 T/CUMM (130-400); Red Cell Distribution Width 15.2 % (9.3-17.3); White Blood Count 16.8 T/CUMM (4-12)
[2019-07-15 04:38] LABS: Osmolality,Calculated 300.3 MOS/KG (273-304)
[2019-07-15] MEDS: INSULIN LISPRO 100 UNIT/ML SUBCUT SCH ×5 (04:45→20:37)
[2019-07-15 04:54] LABS: Lymphocytes 2 % (20-55); Segmented Neutrophils 87 % (50-85); Total Cells Counted 100
[2019-07-15 04:55] LABS: Hypochromasia 1+; Platelet Estimate Adequate
[2019-07-15] MEDS: PANTOPRAZOLE 40 MG TABLET PO SCH (10:00)
[2019-07-15] MEDS: AMIODARONE 200 MG TABLET PO SCH (10:00)
[2019-07-15] MEDS: LOSARTAN 25 MG TABLET PO SCH (10:01)
[2019-07-15] MEDS: ASPIRIN EC 325 MG TABLET PO SCH (10:01)
[2019-07-15] MEDS: methylPREDNISolone SOD SUC 40 MG/1 ML VIAL IV SCH ×2 (10:01→15:30)
[2019-07-15] MEDS: FUROSEMIDE 40 MG/4 ML VIAL IV SCH ×2 (10:04→17:00)
[2019-07-15] MEDS: SKIN HEALING OINT (AQUAPHOR) 50 GM TUBE TOP SCH (10:06)
[2019-07-15] MEDS: CHLORHEXIDINE 0.12% ORAL RINSE 60 ML BOTTLE SWISH/SPIT SCH ×2 (10:06→20:37)
[2019-07-15 13:21] VITALS: BP 129/59
[2019-07-15] MEDS: ATORVASTATIN 40 MG TABLET PO SCH (20:37)
[2019-07-16] MEDS: ALBUTEROL/IPRATROPIUM 3 ML NEB RESP TX SCH ×4 (00:23→19:13)
[2019-07-16] MEDS: methylPREDNISolone SOD SUC 40 MG/1 ML VIAL IV SCH ×4 (00:59→23:46)
[2019-07-16] MEDS: INSULIN LISPRO 100 UNIT/ML SUBCUT SCH ×7 (01:00→23:47)
[2019-07-16 02:46] LABS: Basophils % 0.2 % (0.0-0.8); Hematocrit 35.4 VOL% (42.0-52.0); Hemoglobin 10.9 GM/DL (14.0-18.0); Immature Granulocytes % 0.7 %; Immature Granulocytes Absolute 0.11 #; Lymphocytes # 0.2 10*3/uL (1.4-4.0); Lymphocytes % 1.5 % (21.2-54.2); Mean Corpuscular HGB Conc 30.8 GM/DL (32-36); Mean Platelet Volume 11.5 FL (9.6-12.0); Monocytes % 6.6 % (1.7-12.7); NRBC # 0.03 10*3/uL; Platelet Count 219 T/CUMM (130-400); Red Blood Count 3.89 MC/CUMM (3.8-5.5); Red Cell Distribution Width 15.4 % (9.3-17.3); White Blood Count 15.1 T/CUMM (4-12)
[2019-07-16 02:59] LABS: Calcium 7.5 MG/DL (8.5-10.1)
[2019-07-16 04:07] LABS: Lymphocytes 1 % (20-55); Nucleated Red Blood Cells 1 (0-5); Segmented Neutrophils 93 % (50-85); Total Cells Counted 100
[2019-07-16 04:08] LABS: Anisocytosis 1+; Ovalocytes 1+; Platelet Estimate Normal
[2019-07-16] MEDS: LOSARTAN 25 MG TABLET PO SCH (08:50)
[2019-07-16] MEDS: AMIODARONE 200 MG TABLET PO SCH (08:50)
[2019-07-16] MEDS: FUROSEMIDE 40 MG/4 ML VIAL IV SCH ×2 (08:50→16:40)
[2019-07-16] MEDS: glipiZIDE 5 MG TABLET PO SCH (08:50)
[2019-07-16] MEDS: CHLORHEXIDINE 0.12% ORAL RINSE 60 ML BOTTLE SWISH/SPIT SCH ×2 (08:51→20:41)
[2019-07-16] MEDS: SKIN HEALING OINT (AQUAPHOR) 50 GM TUBE TOP SCH (08:51)
[2019-07-16] MEDS: PANTOPRAZOLE 40 MG TABLET PO SCH (09:01)
[2019-07-16] MEDS: ASPIRIN EC 325 MG TABLET PO SCH (09:01)
[2019-07-16] MEDS ORDERED: glipiZIDE 5 MG TABLET PO SCH (16:30)
[2019-07-16] MEDS: ATORVASTATIN 40 MG TABLET PO SCH (20:04)
[2019-07-17] MEDS: ALBUTEROL/IPRATROPIUM 3 ML NEB RESP TX SCH ×3 (02:25→12:06)
[2019-07-17 04:20] LABS: Basophils % 0.1 % (0.0-0.8); Hematocrit 36.3 VOL% (42.0-52.0); Hemoglobin 11.1 GM/DL (14.0-18.0); Immature Granulocytes % 0.7 %; Immature Granulocytes Absolute 0.11 #; Lymphocytes # 0.2 10*3/uL (1.4-4.0); Lymphocytes % 1.5 % (21.2-54.2); Mean Corpuscular HGB Conc 30.6 GM/DL (32-36); Mean Corpuscular Volume 90.5 FL (87-102); Mean Platelet Volume 12.1 FL (9.6-12.0); Monocytes % 5.1 % (1.7-12.7); Neutrophils % 92.6 % (38.7-73.9); Platelet Count 161 T/CUMM (130-400); Red Blood Count 4.01 MC/CUMM (3.8-5.5); Red Cell Distribution Width 15.6 % (9.3-17.3); White Blood Count 14.9 T/CUMM (4-12)
[2019-07-17 04:49] LABS: Calcium 7.3 MG/DL (8.5-10.1); Osmolality,Calculated 308.7 MOS/KG (273-304); Prealbumin 12.5 MG/DL (20-40)
[2019-07-17 04:59] LABS: Anisocytosis 1+; Lymphocytes 2 % (20-55); Platelet Estimate Adequate; Polychromasia Slight; Segmented Neutrophils 93 % (50-85); Total Cells Counted 100
[2019-07-17] MEDS: INSULIN LISPRO 100 UNIT/ML SUBCUT SCH ×3 (07:44→13:12)
[2019-07-17] MEDS: CHLORHEXIDINE 0.12% ORAL RINSE 60 ML BOTTLE SWISH/SPIT SCH (08:15)
[2019-07-17] MEDS: AMIODARONE 200 MG TABLET PO SCH (08:16)
[2019-07-17] MEDS: FUROSEMIDE 40 MG/4 ML VIAL IV SCH (08:16)
[2019-07-17] MEDS: PANTOPRAZOLE 40 MG TABLET PO SCH (08:16)
[2019-07-17] MEDS: LOSARTAN 25 MG TABLET PO SCH (08:16)
[2019-07-17] MEDS: methylPREDNISolone SOD SUC 40 MG/1 ML VIAL IV SCH (08:16)
[2019-07-17] MEDS: SKIN HEALING OINT (AQUAPHOR) 50 GM TUBE TOP SCH (08:16)
[2019-07-17] MEDS: ASPIRIN EC 325 MG TABLET PO SCH (08:16)
[2019-07-17] MEDS: glipiZIDE 5 MG TABLET PO SCH (08:16)
[2019-07-17] MEDS ORDERED: METOCLOPRAMIDE 10 MG/2 ML VIAL IV PRN (09:26)
[2019-07-17 09:31] LABS: Cholesterol (BF) 18 mg/dL; Fluid Type: PLEURAL FLUID
[2019-07-17] MEDS ORDERED: METOCLOPRAMIDE 10 MG/2 ML VIAL IV SCH (10:00)
== END 2019-07-17 15:03 | DRG 228 ==
LOC: N.ED 15:20 → N.EDINP 19:24 → SUATTDRO 19:24 → N.5E 20:04 → N.ICU 07-07 13:59 → N.CVR 07-10 07:36 → N.ICU 07-11 08:52
PROVIDERS: ADMIT Internal Medicine; ATTEND Internal Medicine